=== PATIENT | male | born 1980 | race African-American/Black ===

== ENCOUNTER 2024-04-07 11:35 | Emergency (ER) | payer OTHER ==
[2024-04-07 15:06] LABS: APPEARANCE,URINE CLEAR (Clear); BILIRUBIN,URINE NEGATIVE (Negative); COLOR,URINE YELLOW (Yellow); GLUCOSE,URINE NEGATIVE (Negative); KETONES,URINE NEGATIVE (Negative); LEUKOCYTE ESTERASE,URINE NEGATIVE (Negative); NITRITE,URINE NEGATIVE (Negative); OCCULT BLOOD,URINE NEGATIVE (Negative); PH,URINE 7.5 (5.0-8.0); PROTEIN,URINE TRACE (Negative)
[2024-04-07 15:10] LABS: BACTERIA,URINE FEW /hpf (FEW); EPITHELIAL CELLS,URINE 0-5 /hpf (0-5); RBC,URINE 0-5 /hpf (0-5); WBC,URINE 0-5 /hpf (0-5)
[2024-04-07 15:11] LABS: MUCUS,URINE MODERATE /hpf (FEW)
[2024-04-07] MEDS: valACYclovir 500 MG Tab PO ONE (16:25)
[2024-04-07 16:40] LABS: C. TRACHOMATIS BY PCR NOT DETECTED; N. GONORRHOEAE BY PCR NOT DETECTED
== END 2024-04-07 16:55 | disposition home or self-care (01) ==
LOC: JD.ED 11:35
DX: B00.9 Herpesviral infection, unspecified (principal); Z11.3 Encounter for screening for infections with a predominantly sexual mode of transmission
CPT/HCPCS: 36415; 81001; 86592; 87449; 87491; 87591; 99283; A9270; G0433